=== PATIENT | male | born 1980 | race Caucasian/White ===

== ENCOUNTER 2018-04-24 15:08 | Emergency (ER) | payer OTHER ==
[~2018-04-24] VITALS: Ht 182.8 cm; Wt 149.7 kg
[~2018-04-24 15:08] MED LIST: Bactrim 200 MG/30 ML PO; LOSARTAN POTASS50 M1 PO; SEPTRA DS 800 M1 TAB PO; SERTRALINE HYDR50 MG PO; TRAMADOL HCL50 MG PO; VICODIN 5/500 505 MG PO; VICODIN ES 7501 TAB PO
[2018-04-24 15:45] LABS: BASO # 0.1 10*3/uL (0.0-0.1); BASO % 1.3 % (0.0-1.0); EOS # 0.1 10*3/uL (0.0-0.4); EOS % 0.9 % (1.0-4.0); HEMOGLOBIN 17.4 g/dl (14.0-18.0); LYMPH # 2.4 10*3/uL (1.3-4.4); LYMPH % 25.1 % (27.0-41.0); MEAN CORPUSCULAR HGB 31.1 pg (27.0-31.0); MEAN CORPUSCULAR HGB CONC 33.5 g/dl (33.0-37.0); MEAN PLATELET VOLUME 9.1 fl (9.6-12.3); MONO # 0.6 10*3/uL (0.1-1.0); MONO % 6.4 % (3.0-9.0); NEUT # 6.2 10*3/uL (2.3-7.9); NEUT % 65.9 % (47.0-73.0); PLATELET COUNT AUTOMATED 266 10*3/uL (130-400); RED BLOOD COUNT 5.59 10*6/uL (4.50-5.90); RED CELL DISTRI WIDTH 13.6 % (0-14.5); WHITE BLOOD COUNT 9.4 10*3/uL (4.8-10.8)
[2018-04-24 16:01] LABS: ALBUMIN 3.7 gm/dl (3.1-4.5); ALKALINE PHOSPHATASE 113 U/L (45-117); BUN 5 mg/dl (7-24); CHLORIDE 104 mmol/L (98-107); CREATININE 0.71 mg/dL (0.70-1.30); POTASSIUM 3.9 mmol/L (3.5-5.1); SGOT/AST 92 IU/L (3-35); SGPT/ALT 201 U/L (12-78); SODIUM 139 mmol/L (136-145); TOTAL PROTEIN 7.7 gm/dL (6.4-8.2)
[2018-04-24 16:56] VITALS: BP 159/91
== END 2018-04-24 17:23 | disposition home or self-care (01) ==
LOC: ED 15:08
PROVIDERS: Nurse Practitioner Family
DX: T50.7X1A Poisoning by analeptics and opioid receptor antagonists, accidental (unintentional), initial encounter (principal); T43.621A Poisoning by amphetamines, accidental (unintentional), initial encounter; Z79.899 Other long term (current) drug therapy; Z88.2 Allergy status to sulfonamides

== ENCOUNTER → 2021-11-22 | Outpatient (CLI) | payer OTHER | END | disposition home or self-care (01) | LOC: CT 09:00 | PROVIDERS: ATTEND Internal Medicine | DX: R91.1 Solitary pulmonary nodule (principal); M47.814 Spondylosis without myelopathy or radiculopathy, thoracic region; M25.78 Osteophyte, vertebrae ==

== ENCOUNTER → 2022-09-29 | Outpatient (CLI) | payer OTHER | END | disposition home or self-care (01) | LOC: CT 15:47 | PROVIDERS: ATTEND Internal Medicine | DX: J43.8 Other emphysema (principal); R91.8 Other nonspecific abnormal finding of lung field; K76.0 Fatty (change of) liver, not elsewhere classified ==

== ENCOUNTER 2024-08-12 21:50 | Emergency (ER) | payer BC ==
[~2024-08-12] VITALS: Ht 182.8 cm; Wt 136.1 kg
[2024-08-12 22:56] LABS: HEMATOCRIT 44.7 % (42.0-52.0); MEAN CELL VOLUME 87.5 fl (80.0-94.0); MEAN CORPUSCULAR HGB 29.5 pg (27.0-31.0); MEAN CORPUSCULAR HGB CONC 33.8 g/dl (33.0-37.0); MEAN PLATELET VOLUME 9.2 fl (9.6-12.3); PLATELET COUNT AUTOMATED 152 10*3/uL (130-400); RED BLOOD COUNT 5.11 10*6/uL (4.50-5.90); RED CELL DISTRI WIDTH 13.7 % (0-14.5); WHITE BLOOD COUNT 9.4 10*3/uL (4.8-10.8)
[2024-08-12 23:03] LABS: MANUAL DIFF REFLEX YES
[2024-08-12 23:17] LABS: ALKALINE PHOSPHATASE 104 U/L (46-116); BUN 12 mg/dl (9-23); CHLORIDE 102 mmol/L (98-107); POTASSIUM 3.8 mmol/L (3.4-5.1); SGPT/ALT 39 U/L (5-49); TOTAL PROTEIN 7.1 gm/dL (6.0-8.0)
[2024-08-12 23:23] LABS: ATYPICAL LYMPHS 4 % (0-0); BASOPHILS 1 % (0-1); PLATELET SUFFICIENCY NORMAL (NORMAL); TOTAL CELLS COUNTED 100 #CELLS
[2024-08-13] MEDS ORDERED: Albuterol Sulf/Ipratropium 3 ML VIAL NEB ONE (00:55)
[2024-08-13] MEDS ORDERED: BENZONATATE100 M1 PO (03:25)
[2024-08-13] MEDS ORDERED: BENZONATATE 100 MG CAP PO ONE (03:25)
[2024-08-13] MEDS ORDERED: Amoxicillin/Clavulanate Pota 875 MG TAB PO ONE (03:25)
[2024-08-13] MEDS ORDERED: predniSONE 20 MG TAB PO ONE (03:25)
[2024-08-13] MEDS ORDERED: PREDNISONE20 M1 PO (03:25)
[2024-08-13] MEDS ORDERED: AMOX-CLAV 875-1 EACH PO (03:25)
[2024-08-13 03:40] VITALS: BP 115/56
== END 2024-08-13 03:40 | disposition home or self-care (01) ==
LOC: ED 21:50
PROVIDERS: Emergency Medicine
DX: J44.1 Chronic obstructive pulmonary disease with (acute) exacerbation (principal); I10 Essential (primary) hypertension; F17.200 Nicotine dependence, unspecified, uncomplicated; Z88.2 Allergy status to sulfonamides; Z79.899 Other long term (current) drug therapy